=== PATIENT | female | born 1985 | race African-American/Black ===

== ENCOUNTER 2018-10-26 14:57 | Emergency (ER) | payer OTHER ==
[~2018-10-26] VITALS: Ht 160 cm; Wt 104.3 kg
[~2018-10-26 14:57] MED LIST: ACETAMINOPHEN-1 EAC1; ADVIL200 M3; ALBUTEROL INHAL17 GM IH; AMOXICILLIN 50500 M1 PO; AZO STANDARD95 MG PO; AZO95 MG PO; BACTRIM DS TAB1 EACH PO; CIPROFLOXACIN500 M1 PO; EXCEDRIN CAPLE1 EACH PO; FAMOTIDINE PO; FLAGYL500 MG PO; IBUPROFEN 600600 M1; IBUPROFEN 600600 M1 PO; IBUPROFEN 800800 MG PO; IRON325; JANUMET 50-5001 EACH PO; KEFLEX500 MG PO; LANTISEPTIC15 ML; LEVEMIR100 UNIT/1 SUBLING; MACROBID 100 M100 M1 PO; NOHOMEMEDICATIONS; NORCO 5-325 TA1 EACH PO; PYRIDIUM200 MG PO; ULTRAM 50MG TAB50 MG PO; ZOFRAN ODT4 MG PO; ZOFRAN4 MG PO; ZPAK PO
[2018-10-26] MEDS ORDERED: IBUPROFEN 600600 M1 PO (15:59)
[2018-10-26 16:34] VITALS: BP 131/74
== END 2018-10-26 16:34 | disposition home or self-care (01) ==
LOC: ER 14:57
DX: S00.03XA Contusion of scalp, initial encounter (principal); E11.9 Type 2 diabetes mellitus without complications; Z98.890 Other specified postprocedural states; Y04.2XXA Assault by strike against or bumped into by another person, initial encounter; Y93.89 Activity, other specified; Y92.89 Other specified places as the place of occurrence of the external cause; Y99.8 Other external cause status